=== PATIENT | female | born 1990 | race African-American/Black ===

== ENCOUNTER 2016-07-04 20:53 | Emergency (ER) | payer SELFPAY ==
--- NOTE | 2016-07-04 21:22 | PDOC ---
History of Present Illness - General Stated Complaint: ABD PAIN Time Seen by Provider: 07/04/16 21:06 History Source: Patient Exam Limitations: No Limitations - History of Present Illness Timing/Duration: other (x5d) Modifying Factors: improves with: eating Associated Symptoms: reports: loss of appetite. denies: chest pain Past History - Past Medical History Allergies/Adverse Reactions: Allergies Allergy/AdvReac Type Severity Reaction Status Date / Time No Known Allergies Allergy Verified 05/21/14 14:08 Home Medications: Ambulatory Orders Albuterol Sulfate Inhaler - [Ventolin HFA Inhaler -] 2 - 4 inh PO Q4H PRN #1 inhaler 03/10/14 Pnv with Ca,No.72/Iron/FA [ Plus Tablet] 1 bottle PO DAILY 05/21/14 Ibuprofen [Motrin -] 600 mg PO TID PRN #90 tablet 05/23/14 Asthma: Yes Cancer: No Cardiac Disorders: No Diabetes: No HTN: No Seizures: No Thyroid Disease: No - Surgical History Abdominal Surgery: Yes - Reproductive History (#): 2 Para: 1 - Psycho/Social/Smoking Cessation Hx Anxiety: No Suicidal Ideation: No Smoking History: Never smoked Have you smoked in the past 12 months: No Hx Alcohol Use: No Drug/Substance Use Hx: No Substance Use Type: None Hx Substance Use Treatment: No Review of Systems - Review of Systems Able to Perform ROS?: Yes Comments:: 07/04/16 21:19 CONSTITUTIONAL: Absent: fever, chills, diaphoresis, generalized weakness, malaise, loss of appetite HEENT: Absent: rhinorrhea, nasal congestion, throat pain, throat swelling, difficulty swallowing, mouth swelling, ear pain, eye pain, visual Changes CARDIOVASCULAR: Absent: chest pain, loss of consciousness, palpitations, irregular heart rate, peripheral edema RESPIRATORY: Absent: cough, shortness of breath, dyspnea with exertion, orthopnea, wheezing, stridor, hemoptysis GASTROINTESTINAL: +nausea, vomiting, epigastric abdominal pain Absent: abdominal distension, diarrhea, constipation, melena, hematochezia GENITOURINARY: Absent: dysuria, frequency, urgency, hesitancy, hematuria, flank pain, genital pain MUSCULOSKELETAL: Absent: myalgia, arthralgia, joint swelling SKIN: Absent: rash, itching, pallor HEMATOLOGIC/IMMUNOLOGIC: Absent: easy bleeding, easy bruising, lymphadenopathy, frequent infections ENDOCRINE: Absent: unexplained weight gain, unexplained weight loss, heat intolerance, cold intolerance NEUROLOGIC: Absent: headache, focal weakness or paresthesias, dizziness, unsteady gait, seizure, mental status changes, bladder or bowel incontinence PSYCHIATRIC: Absent: anxiety, depression, suicidal or homicidal ideation, hallucinations. Is the patient limited [place]ian proficient: No *Physical Exam - Physical Exam Comments: 07/04/16 21:20 GENERAL: Well developed, well nourished. Awake and alert. No acute distress. HEENT: Normocephalic, atraumatic. PERRLA, EOMI. No conjunctival pallor. Sclera are non- icteric. Moist mucous membranes. Oropharynx is clear. NECK: Supple. Full ROM. No JVD. Carotid pulses 2+ and symmetric, without bruits. No thyromegaly. No lymphadenopathy. CARDIOVASCULAR: Regular rate and rhythm. No murmurs, rubs, or gallops. Distal pulses are 2+ and symmetric. PULMONARY: No evidence of respiratory distress. Lungs clear to auscultation bilaterally. No wheezing, rales or rhonchi. ABDOMINAL: Soft. Non-tender. Non-distended. No rebound or guarding. No organomegaly. Normoactive bowel sounds. MUSCULOSKELETAL Normal range of motion at all joints. No bony deformities or tenderness. No CVA tenderness. EXTREMITIES: No cyanosis. No clubbing. No edema. No calf tenderness. SKIN: Warm and dry. Normal capillary refill. No rashes. No jaundice. NEUROLOGICAL: Alert, awake, appropriate. Cranial nerves 2-12 intact. No deficits to light touch and temperature in face, upper extremities and lower extremities. No motor deficits in the in face, upper extremities and lower extremities. Normoreflexic in the upper and lower extremities. Normal speech. Toes are down- going bilaterally. Gait is normal without ataxia. PSYCHIATRIC: Cooperative. Good eye contact. Appropriate mood and affect. ED Treatment Course - LABORATORY CBC & Chemistry Diagram: 07/04/16 22:30 07/04/16 22:30 *DC/Admit/Observation/Transfer Diagnosis at time of Disposition: Viral gastroenteritis Nausea & vomiting Qualifiers: Vomiting type: unspecified Vomiting Intractability: unspecified Qualified Code( s): R11.2 - Nausea with vomiting, unspecified - Discharge Dispostion Disposition: HOME Condition at time of disposition: Improved - Referrals Referrals: Kevin Owens MD [Staff Physician] - - Patient Instructions Printed Discharge Instructions: DI for Viral Gastroenteritis -- Adult, Nausea and Vomiting-Adult Additional Instructions: Rest Follow up with your physician or the listed Manager Of Program Return to the Er for severe/persistent/worsening symptoms Progress Note - Progress Note Progress Note: 26-year-old female presents to the emergency department complaining of epigastric cramping with nausea/vomiting 5 days. Patient states she had Allen's 5 days ago which caused some nausea/vomiting and abdominal cramping. She was seen at [facility] 5 days ago and was admitted for intractable vomiting. Patient was discharged today. Patient states she had a CAT scan of her abdomen and a head CT which were both normal. Upon discharge, she was informed to return to the emergency department if she continues to feel nauseous with vomiting episodes. Patient denies any chest pain, shortness of breath, flank pains, urinary symptoms: Frequency/urgency/hesitancy, hematuria. Patient denies headache, dizziness, lightheadedness, neck or back pains. [id number]; pt says she feels good and wishes to be d/c
[2016-07-04 21:23] VITALS: BP 148/97; PULSE 81; TEMP 97.9; BMI 24.7
[2016-07-04] MEDS ORDERED: METOCLOPRAMIDE HCL INJECTION 10 MG/2 ML VIAL IVPUSH ONE (21:25)
[2016-07-04] MEDS ORDERED: SODIUM CHLORIDE 1,000 ML IV STA (21:25)
[2016-07-04] MEDS ORDERED: RANITIDINE HCL 150 MG TABLET (FP) PO ONE (21:28)
[2016-07-04] MEDS ORDERED: MAG HYDROX/AL HYDROX/SIMETH 355 ML ORAL.SUSP PO ONE (21:28)
[2016-07-04] MEDS ORDERED: SUCRALFATE 1 GM/10 ML UNIT DOSE CUPS PO SCH (22:00)
[2016-07-04] MEDS ORDERED: SUCRALFATE 1 GM TABLET (FP) ONE (22:17)
[2016-07-04] MEDS ORDERED: METOCLOPRAMIDE HCL INJECTION 10 MG/2 ML VIAL ONE (22:17)
[2016-07-04] MEDS ORDERED: RANITIDINE HCL 150 MG TABLET (FP) ONE (22:17)
[2016-07-04] MEDS ORDERED: MAG HYDROX/AL HYDROX/SIMETH 30 ML UNIT-DOSE CUP ONE (22:18)
[2016-07-04 22:47] LABS: BASOPHIL 1.3 % (0-2.0); EOSINOPHIL 3.6 % (0-4.5); MCH 28.9 pg (25.7-33.7); MCHC 33.4 g/dl (32.0-36.0); MEAN CELL VOLUME 86.4 fl (80-96); MEAN PLT VOLUME 9.6 fl (7.5-11.1); NEUTROPHILS 49.7 % (42.8-82.8); PLATELET COUNT 207 K/MM3 (134-434); RDW 16.1 % (11.6-15.6); WHITE BLOOD COUNT 7.7 K/mm3 (4.0-10.0)
[2016-07-04 22:52] LABS: URINE APPEARANCE CLEAR; URINE BILIRUBIN NEGATIVE (NEGATIVE); URINE BLOOD 1+ (NEGATIVE); URINE COLOR LTYELLOW; URINE GLUCOSE (UA) NEGATIVE (NEGATIVE); URINE KETONE TRACE (NEGATIVE); URINE LEUK ESTERASE NEGATIVE (NEGATIVE); URINE NITRITE NEGATIVE (NEGATIVE); URINE PROTEIN NEGATIVE (NEGATIVE); URINE UROBILINOGEN 2.0 E.U/dl E.U./dl (0.2-1.0)
[2016-07-04 22:56] LABS: URINE MUCUS RARE; URINE RBC 7 /hpf (0-3); URINE WBC 1 /hpf (3-5)
[2016-07-04 23:16] LABS: ALBUMIN 4.3 g/dl (3.4-5.0); ALK PHOS 78 U/L (45-117); AMYLASE 48 U/L (25-115); ANION GAP 8 (8-16); BILIRUBIN,TOTAL 1.2 mg/dL (0.2-1.0); CO2 31 mmol/L (21-32); GLUCOSE,RANDOM 84 mg/dL (74-106); SGOT/AST 10 U/L (15-37); SGPT/ALT 24 U/L (12-78); TOT PROT 7.8 g/dl (6.4-8.2)
[2016-07-04 23:54] LABS: PLATELET ESTIMATE ADEQUATE (NORMAL)
== END 2016-07-05 00:32 | disposition home or self-care (01) ==
LOC: JER 20:53
PROC: 3E033GC Introduction of Other Therapeutic Substance into Peripheral Vein, Percutaneous Approach (ICD-10-PCS; principal; 2016-07-04)
DX: A08.4 Viral intestinal infection, unspecified (principal); B97.89 Other viral agents as the cause of diseases classified elsewhere
CPT/HCPCS: 36415; 80053; 81003; 81015; 82150; 83690; 84703; 85025; 99283-25